=== PATIENT | male | born 1965 | race African-American/Black ===

== ENCOUNTER 2023-01-09 08:00 | Emergency (ER) | payer BC, MEDICARE ==
[~2023-01-09] VITALS: Ht 182.9 cm; Wt 77.1 kg
[2023-01-09] MEDS ORDERED: ASPIRIN 325 MG TABLET ONE (08:58)
[2023-01-09] MEDS ORDERED: ASPIRIN 81 MG TAB.CHEW PO ONE (09:00)
[2023-01-09 09:25] LABS: CALCIUM 8.8 mg/dL (8.5-10.1); CARBON DIOXIDE 29 mmol/L (21-32); CHLORIDE 107 mmol/L (98-107); CREATININE 1.9 mg/dL (0.6-1.3); GLUCOSE 114 mg/dL (74-106); POTASSIUM 3.8 mmol/L (3.5-5.1); SODIUM SERUM 144 mmol/L (136-145); UREA NITROGEN, BLOOD 26 mg/dL (7-18)
[2023-01-09 09:35] LABS: BASOPHILS # (AUTO) 0.1 K/UL (0.0-0.2); BASOPHILS % (AUTO) 0.9 % (0.0-2.0); DIFFERENTIAL COMMENT 0; EOSINOPHILS # (AUTO) 0.2 K/uL (0.0-0.7); EOSINOPHILS % (AUTO) 2.6 % (0.0-7.0); HEMATOCRIT 42.8 % (36.7-47.1); HEMOGLOBIN 13.9 g/dL (12.5-16.3); LYMPHOCYTES # (AUTO) 1.8 K/uL (0.8-4.8); LYMPHOCYTES % (AUTO) 22.8 % (20.5-51.5); MEAN CORPUSCULAR HEMOGLOBIN 27.9 uug (23.8-33.4); MEAN CORPUSCULAR HGB CONC 32 g/dL (32.5-36.3); MEAN CORPUSCULAR VOLUME 86.1 fL (73.0-96.2); MONOCYTES # (AUTO) 0.6 K/uL (0.1-1.30); MONOCYTES % (AUTO) 7.3 % (0.0-11.0); NEUTROPHILS # (AUTO) 5.2 K/uL (1.8-8.9); NEUTROPHILS % (AUTO) 66.4 % (38.5-71.5); PLATELET COUNT (AUTO) 163 K/uL (152-348); RED BLOOD CELL COUNT(AUTO) 4.97 MIL/uL (4.06-5.63); RED CELL DISTRIBUTION WIDTH 15.8 % (12.1-16.2); WHITE BLOOD COUNT (AUTO) 7.9 K/uL (3.6-10.2)
[2023-01-09 09:38] LABS: NT-PRO BNP 1241 pg/mL (0-125)
[2023-01-09] MEDS ORDERED: hydrALAZINE HCL 25 MG TABLET PO ONE (10:45)
[2023-01-09] MEDS ORDERED: hydrALAZINE HCL 25 MG TABLET ONE (10:47)
[2023-01-09 11:24] VITALS: BP 187/98; O2SAT 98
== END 2023-01-09 11:32 | disposition home or self-care (01) ==
LOC: ER 08:02
DX: R07.89 Other chest pain (principal); I10 Essential (primary) hypertension; E78.5 Hyperlipidemia, unspecified; Z86.79 Personal history of other diseases of the circulatory system; Z91.018 Allergy to other foods; Z91.010 Allergy to peanuts; Z88.5 Allergy status to narcotic agent; Z88.8 Allergy status to other drugs, medicaments and biological substances
CPT/HCPCS: 36415; 71045; 84484; 85025; 93005; A4663